=== PATIENT | male | born 1995 | race African-American/Black ===

== ENCOUNTER 2016-08-02 14:02 | Emergency (ER) | payer SELFPAY ==
[~2016-08-02] VITALS: Ht 190.5 cm; Wt 66.7 kg
[2016-08-02 14:07] VITALS: BP 124/69
[2016-08-02] MEDS ORDERED: predniSONE 20 MG TABLET PO ONE (14:15)
[2016-08-02] MEDS ORDERED: IPRATRPIUM/ALBUTEROL 0.5/2.5MG 3 ML NEBU. NEB ONE (14:15)
[2016-08-02] MEDS ORDERED: PROAIR HFA8.5 GM INH (14:28)
[2016-08-02] MEDS ORDERED: PRED20TA PO (14:28)
[2016-08-02] MEDS ORDERED: AMOX1TAB61 PO (14:28)
--- NOTE | 2016-08-02 14:28 | PHYS DOC ---
Past Medical History Past Medical History: Asthma Past Surgical History: Other Additional Past Surgical Histo: R ANKLE SX Alcohol Use: None Drug Use: Marijuana Adult General Chief Complaint Chief Complaint: COUGH HPI HPI Patient is a 21 year old male presents emergency Department stating he's had a 4 week history of cough and congestion. Patient states that he's been coughing up mucus. He states that he is been out of his rescue inhaler for approximately one month. He states he has a history of asthma he states that he has started to decrease the amount of cigarettes that he's been smoking. He denies any fever , chills or any nausea vomiting. Review of Systems Review of Systems Constitutional: Denies fever or chills [] Eyes: Denies change in visual acuity, redness, or eye pain [] HENT: Denies nasal congestion or sore throat [] Respiratory: Cough and shortness of air, wheezing, coarseness Cardiovascular: No additional information not addressed in HPI [] GI: Denies abdominal pain, nausea, vomiting, bloody stools or diarrhea [] : Denies dysuria or hematuria [] Musculoskeletal: Denies back pain or joint pain [] Integument: Denies rash or skin lesions [] Neurologic: Denies headache, focal weakness or sensory changes [] Endocrine: Denies polyuria or polydipsia [] Current Medications Current Medications Current Medications Medications (Trade) Dose Ordered Sig/Shiv Start Time Stop Time Status Last Admin Dose Admin Albuterol/ Ipratropium (Duoneb) 3 ml 1X ONCE 08/02/16 14:15 08/02/16 14:37 DC 08/02/16 14:25 3 ML Prednisone (Prednisone) 40 mg 1X ONCE 08/02/16 14:15 08/02/16 14:37 DC Allergies Allergies Allergies Coded Allergies Type Severity Reaction Last Updated Verified No Known Drug Allergies 08/02/16 No Physical Exam Physical Exam Constitutional: Well developed, well nourished, no acute distress, non-toxic appearance. [] HENT: Normocephalic, atraumatic, bilateral external ears normal, oropharynx moist, no oral exudates, nose normal. [] Eyes: PERRLA, EOMI, conjunctiva normal, no discharge. [] Neck: Normal range of motion, no tenderness, supple, no stridor. [] Cardiovascular:Heart rate regular rhythm, no murmur [] Lungs & Thorax: Bilateral breath sounds with coarseness noted posteriorly bilaterally Skin: Warm, dry, no erythema, no rash. [] Back: No tenderness Extremities: No tenderness, no cyanosis, no clubbing, ROM intact, no edema. [] Neurologic: Alert and oriented X 3, normal motor function, normal sensory function, no focal deficits noted. [] Psychologic: Affect normal, judgement normal, mood normal. [] Current Patient Data Vital Signs Vital Signs Date Time Temp Pulse Resp B/P (MAP) Pulse Ox O2 Delivery O2 Flow Rate FiO2 08/02/16 14:25 100 Room Air 08/02/16 14:07 98.1 87 16 98.1 EKG EKG [] Radiology/Procedures Radiology/Procedures [] Course & Med Decision Making Course & Med Decision Making Pertinent Labs and Imaging studies reviewed. (See chart for details) Patient provided with respiratory treatment here in the emergency department as well as prednisone. Patients breath sound with minimal coarseness noted. He will be discharged home with steroids as well as antibiotics and a rescue inhaler. He was instructed to stop smoking. Recommended following up with primary care physician in next 5-7 days. Signs and symptoms to return back to emergency department as been provided. Patient agrees with discharge instructions treatment regimens and follow-up recommendations. [] Dragon Disclaimer Dragon Disclaimer This electronic medical record was generated, in whole or in part, using a voice recognition dictation system. Departure Departure Impression: Primary Impression: Asthma exacerbation Disposition: 01 HOME, SELF-CARE Condition: STABLE Patient Instructions: Asthma, Acute Bronchospasm, Asthma, Adult, [id number], Smoking Cessation, Tips For Success, Smoking, You Can Quit, [id number] Additional Instructions: Activity as tolerated. Medications as prescribed. Good handwashing is essential. Tylenol or ibuprofen for pain and discomfort. Stop smoking. Follow-up the primary care physician next 3-5 days. Return back to emergency department for signs and symptoms of become worse. Scripts Ipratropium/Albuterol Sulfate (DUONEB 0.5-3(2.5) MG/3 ML) 3 Ml Ampul.neb 3 ML NEB QID Y for SHORTNESS OF BREATH, #1 EACH Prov: PARVIZ TAFOYA APRN 08/02/16 Albuterol Sulfate (PROAIR HFA INHALER) 8.5 Gm Hfa.aer.ad 1 PUFF INH PRN Q6HRS Y for SHORTNESS OF BREATH, #1 INHALER 0 Refills Prov: PARVIZ TAFOYA APRN 08/02/16 Prednisone (PREDNISONE) 20 Mg Tablet 40 MG PO DAILY for 7 Days, #14 TAB Prov: PARVIZ TAFOYA APRN 08/02/16 Amoxicillin/Potassium Clav (AUGMENTIN 875-125 TABLET) 1 Each Tablet 1 TAB PO BID, #20 TAB Prov: PARVIZ TAFOYA APRN 08/02/16 PARVIZ TAFOYA APRN Aug 02, 2016 14:28
[2016-08-02] MEDS ORDERED: IPRA3AMP NEB (14:39)
== END 2016-08-02 14:48 | disposition home or self-care (01) ==
LOC: ER 14:02
DX: J45.901 Unspecified asthma with (acute) exacerbation (principal); F17.210 Nicotine dependence, cigarettes, uncomplicated; F12.10 Cannabis abuse, uncomplicated
CPT/HCPCS: 94250; 94640; 99283; J7512; J7620